=== PATIENT | female | born 1970 | race Caucasian/White ===

== ENCOUNTER → 2020-01-23 | Outpatient (CLI) | payer MEDICARE, MEDICAID ==
[2020-01-23 15:14] LABS: EOS # 0.4 (0.04-0.40); EOS % 5.4 % (1.0-5.0); HEMATOCRIT 41.7 % (37.0-47.0); HEMOGLOBIN 13.6 g/dL (12.5-16.0); LYMPH# 2.6 (1.50-4.00); MEAN CELL VOLUME 96 fl (78-100); MEAN CORPUSCULAR HEMOGLOBIN 31 pg (27-31); MEAN CORPUSCULAR HGB CONC 33 g/dL (33-37); MEAN PLATELET VOLUME 8.8 fl (7.4-10.4); MONO # 0.4 (0.20-0.80); NEU # 3.3 (1.40-6.50); PLATELET COUNT 255 K/mm3 (130-400); RED BLOOD COUNT 4.35 M/mm3 (4.10-5.30); RED CELL DISTRIBUTION WIDTH 12.3 % (11.5-14.5); WHITE BLOOD COUNT 6.7 K/mm3 (4.8-10.8)
[2020-01-23 15:24] LABS: ALBUMIN 3.9 g/dL (3.5-5.0)
[2020-01-23 15:26] LABS: CALCIUM 9.2 mg/dL (8.3-10.5)
[2020-01-23 15:27] LABS: TOTAL PROTEIN 6.2 g/dL (6.4-8.3)
[2020-01-23 15:29] LABS: TOTAL BILIRUBIN 0.3 mg/dL (0.2-1.2)
== END ==
LOC: LAB 15:01
PROVIDERS: Family Medicine
DX: Z00.00 Encounter for general adult medical examination without abnormal findings (principal); E78.5 Hyperlipidemia, unspecified; M10.9 Gout, unspecified

== ENCOUNTER → 2020-02-21 | Outpatient (CLI) | payer MEDICARE, MEDICAID ==
[2020-02-21 15:00] LABS: EOS # 0.4 (0.04-0.40); EOS % 6.9 % (1.0-5.0); HEMATOCRIT 43.7 % (37.0-47.0); HEMOGLOBIN 13.9 g/dL (12.5-16.0); LYMPH# 2.8 (1.50-4.00); MEAN CELL VOLUME 98 fl (78-100); MEAN CORPUSCULAR HEMOGLOBIN 31 pg (27-31); MEAN CORPUSCULAR HGB CONC 32 g/dL (33-37); MEAN PLATELET VOLUME 8.8 fl (7.4-10.4); MONO # 0.4 (0.20-0.80); NEU # 2.5 (1.40-6.50); PLATELET COUNT 271 K/mm3 (130-400); RED BLOOD COUNT 4.45 M/mm3 (4.10-5.30); RED CELL DISTRIBUTION WIDTH 12.6 % (11.5-14.5); WHITE BLOOD COUNT 6.2 K/mm3 (4.8-10.8)
[2020-02-21 15:08] LABS: ALBUMIN 4.2 g/dL (3.5-5.0); POTASSIUM 4.3 mmol/L (3.5-5.1)
[2020-02-21 15:09] LABS: CALCIUM 9.7 mg/dL (8.3-10.5)
[2020-02-21 15:12] LABS: TOTAL BILIRUBIN 0.3 mg/dL (0.2-1.2)
== END ==
LOC: LAB 14:36
PROVIDERS: Physician Assistant
DX: R53.83 Other fatigue (principal)

== ENCOUNTER 2020-05-17 11:25 | Emergency (ER) | payer MEDICARE, MEDICAID ==
[2020-05-17 11:35] VITALS: BP 130/92
[2020-05-17] MEDS ORDERED: DOK COLACE100 MG PO (11:55)
[2020-05-17] MEDS ORDERED: FUROSEMIDE20 MG PO (11:56)
[2020-05-17] MEDS ORDERED: ALPRAZOLAM2 M3 PO (11:56)
[2020-05-17] MEDS ORDERED: DESYREL DIVIDO150 M1 PO (11:56)
[2020-05-17] MEDS ORDERED: SINGULAIR PO (11:57)
[2020-05-17] MEDS ORDERED: DARIFENACIN ER15 MG PO (11:57)
[2020-05-17] MEDS ORDERED: CYCLOBENZAPRINE10 M1 PO (11:58)
[2020-05-17] MEDS ORDERED: AUGMENTIN 875-1 EAC1 PO (13:22)
== END 2020-05-17 13:39 | disposition home or self-care (01) ==
LOC: ED 11:25
DX: S01.512A Laceration without foreign body of oral cavity, initial encounter (principal); S09.90XA Unspecified injury of head, initial encounter; Z88.5 Allergy status to narcotic agent; Z88.6 Allergy status to analgesic agent; W18.12XA Fall from or off toilet with subsequent striking against object, initial encounter; Y92.091 Bathroom in other non-institutional residence as the place of occurrence of the external cause

== ENCOUNTER 2020-09-18 09:17 | Emergency (ER) | payer MEDICARE, MEDICAID ==
[~2020-09-18] VITALS: Wt 49.1 kg
[~2020-09-18 09:17] MED LIST: ALPRAZOLAM2 M3 PO; AUGMENTIN 875-1 EAC1 PO; CYCLOBENZAPRINE10 M1 PO; DARIFENACIN ER15 MG PO; DESYREL DIVIDO150 M1 PO; DOK COLACE100 MG PO; FUROSEMIDE20 MG PO; SINGULAIR PO
[2020-09-18 09:54] LABS: BASO # 0.04 (0.02-0.10); EOS # 0.41 (0.04-0.40); EOS % 3.3 % (1.0-5.0); HEMATOCRIT 42.7 % (37.0-47.0); HEMOGLOBIN 13.6 g/dL (12.5-16.0); LYMPH# 1.31 (1.50-4.00); MEAN CELL VOLUME 98 fl (78-100); MEAN CORPUSCULAR HEMOGLOBIN 31 pg (27-31); MEAN CORPUSCULAR HGB CONC 32 g/dL (33-37); MEAN PLATELET VOLUME 8.8 fl (7.4-10.4); MONO # 0.65 (0.20-0.80); NEU # 9.92 (1.40-6.50); PLATELET COUNT 238 K/mm3 (130-400); RED BLOOD COUNT 4.38 M/mm3 (4.10-5.30); WHITE BLOOD COUNT 12.3 K/mm3 (4.8-10.8)
[2020-09-18 10:07] LABS: ALBUMIN 3.8 g/dL (3.5-5.0); POTASSIUM 3.8 mmol/L (3.5-5.1)
[2020-09-18 10:08] LABS: CALCIUM 9.5 mg/dL (8.3-10.5)
[2020-09-18 10:09] LABS: TOTAL PROTEIN 6.8 g/dL (6.4-8.3)
[2020-09-18 10:11] LABS: TOTAL BILIRUBIN 0.5 mg/dL (0.2-1.2)
[2020-09-18] MEDS ORDERED: PREDNISONE20 M1 PO (11:52)
[2020-09-18] MEDS ORDERED: AZITHROMYCIN 250MGPK PO ×2 (11:54→11:59)
[2020-09-18] MEDS ORDERED: IPRATROPIUM BROM3 M1 IH (11:59)
[2020-09-18] MEDS ORDERED: ULTRASONIC PORT1 DEV IH (12:07)
[2020-09-18 12:48] VITALS: BP 138/93
== END 2020-09-18 12:45 | disposition home or self-care (01) ==
LOC: ED 09:17
PROVIDERS: Nurse Practitioner
DX: J45.901 Unspecified asthma with (acute) exacerbation (principal); Z20.822 Contact with and (suspected) exposure to COVID-19; Z79.899 Other long term (current) drug therapy
CPT/HCPCS: J2930

== ENCOUNTER → 2020-11-17 | Outpatient (CLI) | payer MEDICARE, MEDICAID ==
[~2020-11-17] MED LIST changes: +AZITHROMYCIN 250MGPK PO; +IPRATROPIUM BROM3 M1 IH; +PREDNISONE20 M1 PO; +ULTRASONIC PORT1 DEV IH
== END ==
LOC: LAB 11:03
DX: R30.9 Painful micturition, unspecified (principal)

== ENCOUNTER → 2021-07-12 | Outpatient (CLI) | payer MEDICARE, MEDICAID ==
[2021-07-12 16:01] LABS: BASO # 0.04 K/mm3 (0.02-0.10); EOS # 0.25 K/mm3 (0.04-0.40); EOS % 3.4 % (1.0-5.0); HEMATOCRIT 40.1 % (37.0-47.0); HEMOGLOBIN 12.5 g/dL (12.5-16.0); LYMPH# 2.46 K/mm3 (1.50-4.00); MEAN CELL VOLUME 94 fl (78-100); MEAN CORPUSCULAR HEMOGLOBIN 29 pg (27-31); MEAN CORPUSCULAR HGB CONC 31 g/dL (33-37); MEAN PLATELET VOLUME 8.1 fl (7.4-10.4); MONO # 0.41 K/mm3 (0.20-0.80); NEU # 4.02 K/mm3 (1.40-6.50); PLATELET COUNT 503 K/mm3 (130-400); RED BLOOD COUNT 4.28 M/mm3 (4.10-5.30); RED CELL DISTRIBUTION WIDTH 13.9 % (11.5-14.5); WHITE BLOOD COUNT 7.3 K/mm3 (4.8-10.8)
[2021-07-12 16:13] LABS: ALBUMIN 3.7 g/dL (3.5-5.0); POTASSIUM 4.1 mmol/L (3.5-5.1)
[2021-07-12 16:14] LABS: CALCIUM 9.4 mg/dL (8.3-10.5)
[2021-07-12 16:15] LABS: TOTAL PROTEIN 6.9 g/dL (6.4-8.3)
[2021-07-12 16:17] LABS: TOTAL BILIRUBIN 0.2 mg/dL (0.2-1.2)
== END ==
LOC: LAB 15:39
PROVIDERS: Family Medicine
DX: A41.9 Sepsis, unspecified organism (principal)

== ENCOUNTER → 2021-09-18 | Outpatient (CLI) | payer MEDICARE, MEDICAID ==
[2021-09-18 14:45] LABS: ALBUMIN 4.2 g/dL (3.5-5.0); POTASSIUM 3.9 mmol/L (3.5-5.1)
[2021-09-18 14:46] LABS: CALCIUM 9.7 mg/dL (8.3-10.5)
[2021-09-18 14:49] LABS: TOTAL BILIRUBIN 0.6 mg/dL (0.2-1.2)
[2021-09-18 15:07] LABS: BASO # 0.03 K/mm3 (0.02-0.10); EOS # 0.27 K/mm3 (0.04-0.40); EOS % 3.4 % (1.0-5.0); HEMATOCRIT 40.4 % (37.0-47.0); HEMOGLOBIN 12.7 g/dL (12.5-16.0); LYMPH# 2.24 K/mm3 (1.50-4.00); MEAN CELL VOLUME 93 fl (78-100); MEAN CORPUSCULAR HEMOGLOBIN 29 pg (27-31); MEAN CORPUSCULAR HGB CONC 31 g/dL (33-37); MEAN PLATELET VOLUME 9.6 fl (7.4-10.4); MONO # 0.45 K/mm3 (0.20-0.80); NEU # 4.86 K/mm3 (1.40-6.50); PLATELET COUNT 245 K/mm3 (130-400); RED BLOOD COUNT 4.36 M/mm3 (4.10-5.30); RED CELL DISTRIBUTION WIDTH 14.1 % (11.5-14.5); WHITE BLOOD COUNT 7.9 K/mm3 (4.8-10.8)
== END ==
LOC: RAD 13:43
PROVIDERS: Family Medicine
DX: Z00.00 Encounter for general adult medical examination without abnormal findings (principal); E78.5 Hyperlipidemia, unspecified; E55.9 Vitamin D deficiency, unspecified; M54.12 Radiculopathy, cervical region; F51.04 Psychophysiologic insomnia; G89.29 Other chronic pain; G11.10 Early-onset cerebellar ataxia, unspecified; K58.9 Irritable bowel syndrome, unspecified; G43.909 Migraine, unspecified, not intractable, without status migrainosus; I05.9 Rheumatic mitral valve disease, unspecified; F41.8 Other specified anxiety disorders; G60.2 Neuropathy in association with hereditary ataxia; Z72.0 Tobacco use

== ENCOUNTER → 2021-09-25 | Outpatient (CLI) | payer MEDICARE, MEDICAID | LOC: RAD 12:26 | DX: R51.9 Headache, unspecified (principal) ==

== ENCOUNTER → 2022-04-19 | Outpatient (CLI) | payer MEDICARE, MEDICAID ==
[~2022-04-19] MED LIST changes: +DESYREL 100MG100 MG PO; +DULOXETINE30 MG PO; +DULOXETINE60 MG PO; +DURAGESIC75 MCG/PAT TD; +MELOXICAM15 MG PO; +PERCOCET 325 MG1 TAB PO; +SINGULAIR 110 MG/TAB PO
== END ==
LOC: LAB 13:08 → RAD 13:08
DX: R05.9 Cough, unspecified (principal)